=== PATIENT | male | born 1970 | race African-American/Black ===

== ENCOUNTER 2017-03-09 23:33 | Emergency (ER) | payer OTHER ==
[~2017-03-09] VITALS: Ht 180.3 cm; Wt 70.3 kg
[2017-03-09 23:36] VITALS: BP 107/71
== END 2017-03-10 01:38 | disposition home or self-care (01) ==
LOC: ER 23:33
DX: S01.81XA Laceration without foreign body of other part of head, initial encounter (principal); F17.200 Nicotine dependence, unspecified, uncomplicated; F10.99 Alcohol use, unspecified with unspecified alcohol-induced disorder; Y04.2XXA Assault by strike against or bumped into by another person, initial encounter; Y93.89 Activity, other specified; Y92.89 Other specified places as the place of occurrence of the external cause; Y99.8 Other external cause status